=== PATIENT | female | born 1940 | race African-American/Black ===

== ENCOUNTER 2021-10-19 14:28 | Outpatient (CLI) | payer MEDICARE, OTHER ==
[2021-10-20 11:04] LABS: SARS-CoV-2 PCR by NAA Not Detected (NotDetected)
== END 2021-10-19 14:29 | disposition home or self-care (01) ==
LOC: CSHLAB 14:28
PROVIDERS: ATTEND Otolaryngology Plastic Surgery within the Head & Neck
DX: Z20.822 Contact with and (suspected) exposure to COVID-19 (principal); R13.12 Dysphagia, oropharyngeal phase
CPT/HCPCS: U0003; U0005

== ENCOUNTER 2021-10-23 12:30 | Outpatient (CLI) | payer MEDICARE, OTHER | END 2021-10-23 12:31 | disposition home or self-care (01) | LOC: CSHRAD 12:30 | PROVIDERS: ATTEND Otolaryngology Plastic Surgery within the Head & Neck | DX: R13.12 Dysphagia, oropharyngeal phase (principal); K21.9 Gastro-esophageal reflux disease without esophagitis | CPT/HCPCS: 74220 ==